=== PATIENT | female | born 1975 | race Caucasian/White ===

== ENCOUNTER → 2025-08-13 19:39 | Outpatient (CLI) | payer OTHER, SELFPAY ==
--- NOTE | 2025-08-13 19:49 | DI.MRI.S_ITS ---
PROCEDURE: MR FEMUR RT WO/W CON INDICATIONS: Mass on right thigh TECHNIQUE: Noncontrast coronal T1 spin echo and STIR, sagittal T1 spin echo with fat saturation and STIR, axial T1 spin echo and T2 fast spin echo with fat saturation. After the administration of contrast, axial/sagittal/coronal T1 spin echo with fat saturation through the right thigh . COMPARISON: None. FINDINGS: Image quality: Excellent. Bones: The visualized bone marrow demonstrates normal signal on all sequences. The overlying cortex appears intact. No abnormal intraosseous enhancement. Soft tissues: No soft tissue masses are visualized. The scanned muscles demonstrate normal overall bulk and internal signal. Subcutaneous tissues appear normal as well. No abnormal soft tissue enhancement. IMPRESSION: Normal exam. No mass. Dictated by: Abe Hansen M.D. on 08/14/2025 at 9:51 Approved by: Abe Hansen M.D. on 08/14/2025 at 9:54
== END ==
LOC: MRI 19:41
PROVIDERS: Referring Provider Orthopaedic Surgery; Visit Provider Orthopaedic Surgery
DX: S76.311A Strain of muscle, fascia and tendon of the posterior muscle group at thigh level, right thigh, initial encounter (principal)
CPT/HCPCS: 73720; A9579